=== PATIENT | female | born 1950 | race Caucasian/White ===

== ENCOUNTER 2017-12-22 16:07 | Emergency (ER) | payer OTHER ==
[~2017-12-22] VITALS: Ht 177.8 cm; Wt 90.0 kg
[2017-12-22] MEDS ORDERED: LISINOPRIL20 MG PO (16:59)
[2017-12-22] MEDS ORDERED: PRAVASTATIN SOD40 MG PO (17:01)
[2017-12-22] MEDS ORDERED: ASPIR-LOW81 MG PO (17:01)
[2017-12-22 18:16] LABS: HEMATOCRIT 37.8 % (36.0-46.0); HEMOGLOBIN 13.1 G/DL (11.9-15.5); MCH 31.2 PG (29.0-34.0); MCHC 34.7 G/DL (30.0-36.0); PLATELET COUNT 182 K/uL (156-360); RBC DIS.WIDTH-CV 12.2 % (11.8-14.6); RBC DIS.WIDTH-SD 39.8 % (39-53); WHITE BLOOD COUNT 9.7 K/uL (4.1-10.2)
[2017-12-22 18:25] LABS: ALBUMIN 4.2 g/dL (3.2-4.8); CHLORIDE 108 mEq/L (99-109); POTASSIUM 4.2 mEq/L (3.7-5.4); SODIUM 144 mEq/L (136-147)
[2017-12-22 18:27] LABS: GLUCOSE 99 mg/dL (70-99); TOTAL PROTEIN 7.5 g/dL (6.4-8.3)
[2017-12-22 18:29] LABS: TOTAL BILIRUBIN 0.4 mg/dL (0.0-1.0)
[2017-12-22 18:31] LABS: ALKALINE PHOSPHATASE 60 IU/L (3-129); GFR ESTIMATE (CALCULATED) 59 mL/min/
[2017-12-22 18:32] LABS: UREA NITROGEN (BUN) 21 mg/dL (9-23)
[2017-12-22 18:33] LABS: AST (GOT) 22 IU/L (2-34)
[2017-12-22 18:34] LABS: ALT (GPT) 22 IU/L (3-49)
[2017-12-22] MEDS ORDERED: KEFLEX500 MG PO (20:28)
[2017-12-22 21:20] VITALS: BP 149/83
== END 2017-12-22 21:21 | disposition home or self-care (01) ==
LOC: EME 16:07
PROVIDERS: Nurse Practitioner Family
DX: K42.9 Umbilical hernia without obstruction or gangrene (principal); L02.216 Cutaneous abscess of umbilicus; I10 Essential (primary) hypertension; E78.5 Hyperlipidemia, unspecified; Z79.82 Long term (current) use of aspirin
CPT/HCPCS: 74177; 80053; 85027; 99281; 99285